=== PATIENT | female | born 1945 | race Caucasian/White ===

== ENCOUNTER 2020-02-05 10:53 | Emergency (ER) | payer MEDICARE, OTHER ==
--- NOTE | 2020-02-05 11:37 | EDM.PDOC ---
ED HPI GENERAL MEDICAL PROBLEM - General Stated Complaint: CHEST TUBE LEAKING Time Seen by Provider: 02/05/20 11:24 Source of Information: Reports: Patient History Limitations: Reports: No Limitations - History of Present Illness INITIAL COMMENTS - FREE TEXT/NARRATIVE: Pt. presents to ER with complaints of leaking from chest tube. Pt. has a history of lung CA and had a R posterior lateral thoracotomy and R upper lobectomy on 01/23/2020. Pt. had a chest tube placed at that time due to pneumothorax. Pt. was discharged home with the chest tube in place with a Heimlich valve. Pt. noticed this AM that there was some drainage on the bedding when she woke up. There is a large laceration/defect in the distal portion of the chest tube. Nursing staff states that this has been present since discharge. Pt. denies any shortness of breath. No fever or chills. She is scheduled to see her surgeon tomorrow. Onset: Today Onset Date: 02/05/20 Location: Reports: Chest ED ROS GENERAL - Review of Systems Review Of Systems: See Below Constitutional: Reports: No Symptoms HEENT: Reports: No Symptoms Respiratory: Reports: No Symptoms Cardiovascular: Reports: No Symptoms Endocrine: Reports: No Symptoms GI/Abdominal: Reports: No Symptoms : Reports: No Symptoms Musculoskeletal: Reports: No Symptoms Skin: Reports: No Symptoms Neurological: Reports: No Symptoms Psychiatric: Reports: No Symptoms Hematologic/Lymphatic: Reports: No Symptoms Immunologic: Reports: No Symptoms ED EXAM, GENERAL - Physical Exam Exam: See Below Exam Limited By: No Limitations General Appearance: Alert, WD/WN, No Apparent Distress Neck: Normal Inspection, Supple, Non-Tender, Full Range of Motion Respiratory/Chest: No Respiratory Distress, Lungs Clear, Normal Breath Sounds, No Accessory Muscle Use, Chest Non-Tender Cardiovascular: Normal Peripheral Pulses, Regular Rate, Rhythm, No Edema, No Gallop, No JVD, No Murmur, No Rub Neurological: Alert, Oriented, CN II-XII Intact, Normal Cognition, Normal Gait, Normal Reflexes, No Motor/Sensory Deficits Skin Exam: Warm, Dry, Intact, No Rash, Pallor Course - Re-Assessments/Exams Free Text/Narrative Re-Assessment/Exam: 02/05/20 11:39 There is a large laceration/defect in the distal end of the chest tube as is often seen when trying to remove the tube from a water seal. The distal portion of the hemlich valve input extends past the defect. There is also a ziptie applied to the heimlich valve, apparently to hold onto the chest tube. No large air leaks noted. There is drainage into the heimlich valve. No large volume air leak noted. The heimlich valve was further secured into the chest tube. A tegaderm dressing was placed over the defect in the side of the tube. Pt. was symptom free at time of discharge. Lung sounds were clear to auscultation. Departure - Departure Time of Disposition: 11:40 Disposition: Home, Self-Care 01 Condition: Good Clinical Impression: Complication of chest tube - Discharge Information Instructions: Chest Tube One-Way Valve Home Guide Additional Instructions: Return to ER if you have any chest pain, shortness of breath, fever or chills. Follow-up with surgery tomorrow - Problem List Review Problem List Initiated/Reviewed/Updated: Yes - Assessment/Plan Plan: Return to ER if you have any chest pain, shortness of breath, fever or chills. Follow-up with surgery tomorrow
== END 2020-02-05 11:25 | disposition home or self-care (01) ==
LOC: VM.ED 10:53
DX: T82.538A Leakage of other cardiac and vascular devices and implants, initial encounter (principal)
CPT/HCPCS: 99283; 99283-GF